=== PATIENT | female | born 1950 | race Caucasian/White ===

== ENCOUNTER → 2017-07-26 | Emergency (ER) | payer OTHER ==
[~2017-07-26] VITALS: Ht 157.5 cm; Wt 55.8 kg
[~2017-07-26] MED LIST: ADULT ASPIRIN81 MG; ATORVASTATIN CA40 MG; KETO10TA2 PO; PLAVIX75 MG
== END | disposition home or self-care (01) ==
LOC: ER 09:45
DX: M25.532 Pain in left wrist (principal)